=== PATIENT | male | born 1985 | race Two or more races ===

== ENCOUNTER 2019-03-10 17:24 | Emergency (ER) | payer SELFPAY ==
[~2019-03-10] VITALS: Ht 180.3 cm; Wt 95.3 kg
[2019-03-10] MEDS ORDERED: ONDANSETRON PF 4 MG/2 ML VIAL. IV ONE (18:15)
[2019-03-10] MEDS ORDERED: fentaNYL PF VIAL 100 MCG/2 ML VIAL IV PRN (18:15)
--- NOTE | 2019-03-10 18:27 | PHYS DOC ---
Adult General Chief Complaint Chief Complaint: FEVER HPI HPI Patient is a 33-year-old male who presents with complaint of nausea with vomiting and diarrhea along with productive cough. He also indicates that he has abdominal pain that he rates as moderate and states that it's primarily in his upper abdomen. He states that he has not been able to keep anything down since onset of symptoms yesterday morning. He states that symptoms are worsened if he tries to eat or drink anything. He is not sure whether or not he has been running a fever but states that he has been feeling hot spells and chills with cold sweats. He also indicates that he has soreness chest from the coughing.[] Review of Systems Review of Systems Constitutional: Positive subjective fever and chills [] HENT: Denies nasal congestion or sore throat [] Respiratory: Positive cough without shortness of breath [] Cardiovascular: No additional information not addressed in HPI [] GI: Complains of abdominal pain with vomiting and diarrhea [] Integument: Denies rash or skin lesions [] Neurologic: Denies headache, focal weakness or sensory changes [] All other systems were reviewed and found to be within normal limits, except as documented in this note. Current Medications Current Medications Current Medications Medications (Trade) Dose Ordered Sig/Aylin Start Time Stop Time Status Last Admin Dose Admin Fentanyl Citrate (Fentanyl 2ml Vial) 25 mcg PRN Q15MIN PRN 03/10/19 18:15 03/11/19 18:14 03/10/19 19:04 25 MCG Ondansetron HCl (Zofran) 4 mg 1X ONCE 03/10/19 18:15 03/10/19 18:52 DC 03/10/19 18:50 4 MG Sodium Chloride 1,000 ml @ 1,000 mls/hr Q1H 03/10/19 19:00 03/10/19 19:59 DC 03/10/19 19:01 1,000 MLS/HR Allergies Allergies Allergies Coded Allergies Type Severity Reaction Last Updated Verified No Known Drug Allergies 03/10/19 No Physical Exam Physical Exam Constitutional: Well developed, well nourished, no acute distress, non-toxic appearance. [] HENT: Normocephalic, atraumatic, bilateral external ears normal, oropharynx moist, no oral exudates, nose normal. [] Eyes: PERRLA, EOMI, conjunctiva normal, no discharge. [] Neck: Normal range of motion, no tenderness, supple, no stridor. [] Cardiovascular:Heart rate regular rhythm, no murmur [] Lungs & Thorax: Fine rhonchi are noted in bilateral lung bases to auscultation [] Abdomen: Bowel sounds normal, soft, with upper abdominal tenderness. [] Skin: Warm, dry, no erythema, no rash. [] Extremities: No tenderness, no cyanosis, no clubbing, ROM intact. [] Neurologic: Alert and oriented X 3, no focal deficits noted. [] Current Patient Data Vital Signs Vital Signs Date Time Temp Pulse Resp B/P (MAP) Pulse Ox O2 Delivery O2 Flow Rate FiO2 03/10/19 19:04 Room Air 03/10/19 18:30 98.7 111 16 149/100 (116) 97 98.7 Lab Values Laboratory Tests Test 03/10/19 18:45 03/10/19 18:58 03/10/19 19:50 White Blood Count 15.7 x10^3/uL (4.0-11.0) H Red Blood Count 4.86 x10^6/uL (4.30-5.70) Hemoglobin 15.5 g/dL (13.0-17.5) Hematocrit 45.0 % (39.0-53.0) Mean Corpuscular Volume 93 fL (79-100) Mean Corpuscular Hemoglobin 32 pg (25-35) Mean Corpuscular Hemoglobin Concent 34 g/dL (31-37) Red Cell Distribution Width 12.8 % (11.5-14.5) Platelet Count 187 x10^3/uL (140-400) Neutrophils (%) (Auto) 78 % (31-73) H Lymphocytes (%) (Auto) 11 % (24-48) L Monocytes (%) (Auto) 8 % (0-9) Eosinophils (%) (Auto) 3 % (0-3) Basophils (%) (Auto) 0 % (0-3) Neutrophils # (Auto) 12.2 x10^3/uL (1.8-7.7) H Lymphocytes # (Auto) 1.7 x10^3/uL (1.0-4.8) Monocytes # (Auto) 1.3 x10^3/uL (0.0-1.1) H Eosinophils # (Auto) 0.4 x10^3/uL (0.0-0.7) Basophils # (Auto) 0.1 x10^3/uL (0.0-0.2) D-Dimer (Bethany) 0.28 ug/mlFEU (0.00-0.50) Sodium Level 139 mmol/L (136-145) Potassium Level 3.5 mmol/L (3.5-5.1) Chloride Level 101 mmol/L (98-107) Carbon Dioxide Level 26 mmol/L (21-32) Anion Gap 12 (6-14) Blood Urea Nitrogen 13 mg/dL (8-26) Creatinine 0.9 mg/dL (0.7-1.3) Estimated GFR (Cockcroft-Gault) 98.4 BUN/Creatinine Ratio 14 (6-20) Glucose Level 104 mg/dL (70-99) H Calcium Level 8.9 mg/dL (8.5-10.1) Total Bilirubin 0.8 mg/dL (0.2-1.0) Aspartate Amino Transferase (AST) 17 U/L (15-37) Alanine Aminotransferase (ALT) 28 U/L (16-63) Alkaline Phosphatase 89 U/L (46-116) Total Protein 8.2 g/dL (6.4-8.2) Albumin 4.0 g/dL (3.4-5.0) Albumin/Globulin Ratio 1.0 (1.0-1.7) Lipase 42 U/L (73-393) L Urine Collection Type Unknown Urine Color Yellow Urine Clarity Clear Urine pH 6.0 Urine Specific [place] 1.020 Urine Protein Negative mg/dL (NEG-TRACE) Urine Glucose (UA) Negative mg/dL (NEG) Urine Ketones (Stick) Negative mg/dL (NEG) Urine Blood Negative (NEG) Urine Nitrite Negative (NEG) Urine Bilirubin Negative (NEG) Urine Urobilinogen Dipstick 1.0 mg/dL (0.2 mg/dL) Urine Leukocyte Esterase Negative (NEG) Urine RBC Rare /HPF (0-2) Urine WBC Rare /HPF (0-4) Urine Squamous Epithelial Cells Occ /LPF Urine Bacteria 0 /HPF (0-FEW) Urine Mucus Marked /LPF Laboratory Tests 03/10/19 18:45 Laboratory Tests 03/10/19 18:58 EKG EKG [] Radiology/Procedures Radiology/Procedures [] Impressions: Chest x-ray demonstrates some peribronchial cuffing Course & Med Decision Making Course & Med Decision Making Pertinent Labs and Imaging studies reviewed. (See chart for details) [] Dragon Disclaimer Dragon Disclaimer This electronic medical record was generated, in whole or in part, using a voice recognition dictation system. Departure Departure Impression: Primary Impression: Acute bronchitis Additional Impression: Gastroenteritis Disposition: HOME, SELF-CARE Condition: STABLE Referrals: NO PCP (PCP) Patient Instructions: Acute Bronchitis, Viral Gastroenteritis Scripts Loperamide HCl (Imodium A-D) 2 Mg Capsule 2 MG PO TID PRN for DIARRHEA, #20 CAP Prov: MARTHA FERRER Jr. DO 03/10/19 Promethazine HCl/Codeine (Prometh-Codein 6.25-10 mg/5 ml) 5 Ml Syrup 10 ML PO Q4-6HRS PRN for COUGH, #240 MISC Prov: MARTHA FERRER Jr. DO 03/10/19 Azithromycin (ZITHROMAX) 250 Mg Tablet 1 PKG PO UD, #6 TAB Prov: MARTHA FERRER Jr. DO 03/10/19 Problem Qualifiers Primary Impression: Acute bronchitis Bronchitis organism: unspecified organism Qualified Codes: J20.9 - Acute bronchitis, unspecified MARTHA FERRER Jr. DO Mar 10, 2019 18:27
[2019-03-10] MEDS ORDERED: IV NORMAL SALINE 1000ML BAG 1,000 ML IV SCH (19:00)
[2019-03-10 19:21] LABS: BASO # 0.1 x10^3/uL (0.0-0.2); BASO % 0 % (0-3); EOS # 0.4 x10^3/uL (0.0-0.7); EOS % 3 % (0-3); HEMOGLOBIN 15.5 g/dL (13.0-17.5); LYMPH # 1.7 x10^3/uL (1.0-4.8); LYMPH % 11 % (24-48); MEAN CORPUSCULAR HEMOGLOBIN 32 pg (25-35); MEAN CORPUSCULAR HGB CONC 34 g/dL (31-37); MEAN CORPUSCULAR VOLUME 93 fL (79-100); MONO # 1.3 x10^3/uL (0.0-1.1); MONO % 8 % (0-9); NEUT # 12.2 x10^3/uL (1.8-7.7); NEUT % 78 % (31-73); PLATELET COUNT 187 x10^3/uL (140-400); RED BLOOD COUNT 4.86 x10^6/uL (4.30-5.70); RED CELL DISTRIBUTION WIDTH 12.8 % (11.5-14.5); WHITE BLOOD COUNT 15.7 x10^3/uL (4.0-11.0)
[2019-03-10 19:30] LABS: CALCIUM 8.9 mg/dL (8.5-10.1); CREATININE 0.9 mg/dL (0.7-1.3); GFR 98.4; POTASSIUM 3.5 mmol/L (3.5-5.1)
[2019-03-10 19:36] LABS: TOTAL BILIRUBIN 0.8 mg/dL (0.2-1.0); TOTAL PROTEIN 8.2 g/dL (6.4-8.2)
[2019-03-10 20:06] LABS: BILIRUBIN,URINE NEGATIVE (NEG); CLARITY,URINE CLEAR; COLOR,URINE YELLOW; NITRITE,URINE NEGATIVE (NEG); PROTEIN,URINE NEGATIVE (NEG-TRACE)
[2019-03-10 20:13] LABS: BACTERIA,URINE 0 /HPF (0-FEW); RBC,URINE RARE /HPF (0-2); SQUAMOUS EPITHELIAL CELL,UR OCC /LPF; WBC,URINE RARE /HPF (0-4)
[2019-03-10] MEDS ORDERED: AZIT250T PO (20:34)
[2019-03-10] MEDS ORDERED: PROM5SYR2 PO (20:34)
[2019-03-10] MEDS ORDERED: LOPE2CAP88 PO (20:34)
[2019-03-10] MEDS ORDERED: cefTRIAXone IV Push 1 GM VIAL. IVP ONE (21:00)
[2019-03-10 21:17] VITALS: BP 149/101
--- NOTE | 2019-03-11 09:04 | RAD ---
CHEST PA LATERAL History: Cough.. No prior study for comparison. Heart size is not enlarged. No evidence of pneumothorax, pleural effusion or infiltrate. Bones appear intact. IMPRESSION: No evidence of consolidating infiltrate. Electronically signed by: Jose G Castellanos MD (03/11/2019 9:01 AM) [id number]
== END 2019-03-10 21:18 | disposition home or self-care (01) ==
LOC: ER 17:24
DX: J20.9 Acute bronchitis, unspecified (principal); K52.9 Noninfective gastroenteritis and colitis, unspecified
CPT/HCPCS: 36415; 71046; 80053; 81001; 83690; 85025; 85379; 96361; 96374; 96375; 99285; J0696; J2405; J3010; J7030

== ENCOUNTER 2020-01-24 07:36 | Emergency (ER) | payer OTHER ==
[~2020-01-24] VITALS: Ht 180.3 cm; Wt 93.9 kg
[~2020-01-24 07:36] MED LIST: AZIT250T PO; DICY20TA3 PO; LOPE-101 PO; ONDA4TAB7 PO; PROM5SYR2 PO
[2020-01-24 08:10] VITALS: BP 133/83
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
[2020-01-24] MEDS ORDERED: IBUPROFEN 200 MG TABLET. PO ONE (08:30)
--- NOTE | 2020-01-24 08:50 | RAD ---
EXAM: 3 views of the right wrist 3 views of the right hand DATE: 01/24/2020 8:18 AM INDICATION: Reason: 5th mc pain COMPARISON: No Prior FINDINGS: Oblique fracture through the fifth metacarpal neck in apex dorsal angulation. Moderate associated soft tissue swelling is seen. Joint spaces are preserved without significant degenerative/proliferative change. IMPRESSION: No acute fracture or dislocation. Electronically signed by: Michael Allen MD (01/24/2020 8:47 AM) [id number]
[2020-01-24] MEDS ORDERED: LIDOCAINE 1% PF 2 ML VIAL. INJ ONE (10:00)
[2020-01-24] MEDS ORDERED: HYDR-3164 PO (10:13)
[2020-01-24] MEDS ORDERED: HYDROcodone/APAP 7.5/325MG 1 TAB TABLET PO ONE (10:15)
--- NOTE | 2020-01-24 10:28 | RAD ---
PROCEDURE: HAND RIGHT 2V STUDY DATE: 01/24/2020 CLINICAL INDICATION / HISTORY: Reason: s/p reduction / Spl. Instructions: / History: . TECHNIQUE: PA, lateral and oblique views of the right hand. COMPARISON: Earlier same day right hand x-rays. FINDINGS: No significant change in apex dorsal angulated distal fifth metacarpal oblique fracture with no dislocation. The bone density is normal. The joint spaces are maintained, and there are no erosions to suggest an inflammatory arthropathy. The soft tissues show associated soft tissue swelling in the hand. A splint has been placed in the interval. IMPRESSION: No change in apex dorsal angulated distal fifth metacarpal boxer's fracture. Electronically signed by: Sophie Tabares MD (01/24/2020 10:25 AM) [id number]
== END 2020-01-24 10:26 | disposition home or self-care (01) ==
LOC: MERGE 07:36 → ER 07:36
DX: S62.336A Displaced fracture of neck of fifth metacarpal bone, right hand, initial encounter for closed fracture (principal); W22.01XA Walked into wall, initial encounter; Y93.89 Activity, other specified; Y92.89 Other specified places as the place of occurrence of the external cause; Y99.8 Other external cause status
CPT/HCPCS: 26605; 73100; 73120; 73130; 99284; J3490; 29125; 99285